=== PATIENT | female | born 1925 | race Caucasian/White ===

== ENCOUNTER 2016-10-24 16:15 | Emergency (ER) | payer MEDICARE ==
--- NOTE | ~2016-10-24 | CR72 ---
[facility] A Service of [facility] & [facility] RADIOLOGY TEXT RESULTS PATIENT: RIVERA CALVILLO LOCATION: [facility] : [birth year] UNIT #: [id number] AGE: [address]: Amari Daniel MD SEX: F ORDER DR: [id number] [facility] [address] [place], [place] [address] [id number] E MR#: [id number] Acc #: [id number] NAME: RIVERA CALVILLO : 1925 SEX: F STUDY DATE/TIME: 10/24/2016 16:10 UNIT: [facility] ROOM: STUDY DESCRIPTION: CR Chest Single View Portable Attending Physician: Amari Daniel M.D. Ordering Physician: Amari Daniel M.D. Primary Care Physician: Berta Nieves M.D. MEDICAL IMAGING REPORT This report is preliminary unless electronic signature is present EXAM Portable chest HISTORY 89-year-old female, shortness of air, cough x3 days. COMPARISON STUDIES 09/03/2014. FINDINGS Portable view chest demonstrates pulmonary hyperinflation, hyperlucency compatible with emphysema. 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 Stable cardiomegaly and mild aortic atherosclerotic changes. No infiltrates or effusions or pneumothorax. Dictated by... Víctor Myrick M.D. THIS IS AN ELECTRONICALLY VERIFIED REPORT Víctor Myrick M.D. at 10/24/2016 8:37 PM MISAEL/milagros TD: 10/24/2016 19:07 JOB #: [id number] MEDICAL IMAGING REPORT Page 1 of 1 COPY
--- NOTE | ~2016-10-24 | EKG ---
PATIENT: RIVERA CALVILLO UNIT #: [id number] Ventricular Rate: 86 BPM Atrial Rate: 86 BPM P-R Interval: 138 ms QRS Duration: 72 ms Q-T Interval: 364 ms QTC Calculation(Bezet): 435 ms P [place]: 74 degrees Calculated R [place]: 23 degrees Calculated T [place]: 22 degrees Diagnosis Line: Normal sinus rhythm Diagnosis Line: Normal ECG Diagnosis Line: When compared with ECG of 01-JUL-2014 06:45, Diagnosis Line: Fusion complexes are no longer Present Diagnosis Line: Premature ventricular complexes are no longer Diagnosis Line: Present Diagnosis Line: Confirmed by DARREN RICHARDS MD ([id number]) on 10/24/2016 Diagnosis Line: 6:43:08 PM INTERPRETING MD: MAURICE FRANCIS
[~2016-10-24 16:15] MED LIST: ACETAMINOPHEN325 MG PO; AMARYL PO; AMLODIPINE BESY10 MG PO; EFFEXOR75 M1 PO; EFFEXOR75 M3 PO; GLYBURIDE; LEVOTHYROXINE112 MCG PO; LIPITOR; LISINOPRIL-HCTZ1 T15 PO; LISINOPRIL10 MG PO; METFORMIN HCL1000 M1 PO; METFORMIN PO; OMEPRAZOLE20 M2 PO; PRAVASTATIN SOD40 MG PO; SYNTHROID; SYNTHROID112 MCG PO; TAMIFLU75 M1 PO
[2016-10-24 16:28] LABS: BASOPHIL# 0.1 X10e3 (0-0.3); BASOPHIL% 0.5 % (0-2.5); EOSINOPHIL# 0.1 X10e3 (0-0.7); EOSINOPHIL% 0.7 % (0.0-7.0); HEMATOCRIT 36.9 % (35.0-45.0); HEMOGLOBIN 12.2 gm/dL (12.0-16.0); LYMPHOCYTE# 1.6 X10e3 (1.0-3.5); LYMPHOCYTE% 16.6 % (17.0-45.0); MEAN CELL VOLUME 88.9 FL (83-96); MEAN CORPUSCULAR HEMOGLOBIN 29.3 PG (28-34); MEAN CORPUSCULAR HGB CONC 32.9 g/dL (30-36); MEAN PLATELET VOLUME 9.8 FL (6.5-11.5); MONOCYTE# 1.3 X10e3 (0-1.0); MONOCYTE% 13.5 % (3.0-12.0); NEUTROPHIL# 6.7 X10e3 (1.5-7.1); NEUTROPHIL% 68.7 % (40-75); PLATELET COUNT 267 X10e3 (140-420); RED BLOOD COUNT 4.15 X10e (3.90-5.30); RED CELL DISTRIBUTION WIDTH 13.8 % (11.0-15.5); WHITE BLOOD COUNT 9.7 X10e3 (4.0-10.5)
[2016-10-24 16:31] LABS: DIFF IND NO
[2016-10-24 16:33] LABS: POC - CKMB 4.2 ng/mL (0.0-7.9); POC - TROPONIN <0.05 ng/mL (<=0.05)
[2016-10-24 16:41] LABS: PARTIAL THROMBOPLASTIN TIME 26.5 SECONDS (23.5-31.3); PROTHROMBIN TIME (PATIENT) 10.5 SECONDS (9.6-11.5)
[2016-10-24 16:53] LABS: ALBUMIN SERUM 3.7 g/dL (3.5-5.0); BILIRUBIN, DIRECT 0.1 mg/dL (0.0-0.2); BILIRUBIN,INDIRECT 0.5 mg/dL (0.0-0.9); BILIRUBIN,TOTAL 0.6 mg/dL (0.2-2.0); CALCIUM SERUM 8.9 mg/dL (8.4-10.2); CREATININE SERUM 1.3 mg/dL (0.6-1.4); GLOM FILT RATE Estimated 36.3 mL/min (>60); POTASSIUM 4.3 mmol/L (3.5-5.1); PROTEIN TOTAL SERUM 7.9 g/dL (6.0-8.3)
[2016-10-24 18:02] LABS: POC - CKMB 3.4 ng/mL (0.0-7.9); POC - TROPONIN <0.05 ng/mL (<=0.05)
== END 2016-10-24 18:50 | disposition home or self-care (01) ==
LOC: CED 16:15
PROVIDERS: Emergency Medicine
DX: J44.9 Chronic obstructive pulmonary disease, unspecified (principal); I10 Essential (primary) hypertension; E11.9 Type 2 diabetes mellitus without complications; Z79.899 Other long term (current) drug therapy
CPT/HCPCS: 36415; 71010; 80048; 80076; 82553; 83880; 84484; 85025; 85610; 85730; 93005; 94640; 96374; 99284; J2930